=== PATIENT | male | born 1945 | race Caucasian/White ===

== ENCOUNTER 2021-11-26 10:33 | Day surgery (SDC) | payer MEDICARE ==
[~2021-11-26] VITALS: Ht 165.1 cm; Wt 84.8 kg
[~2021-11-26 10:33] MED LIST: ASPIRIN 81 LOW81 MG; CARVEDILOL3.125 MG PO; CLOPIDOGREL75 MG PO; DOCUSATE CAL240 MG PO; FAMOTIDINE20 M1 PO; FUROSEMIDE20 MG PO; ISOSORBIDE DINIT5 MG PO; LEVOTHYROXIN100 MC1 PO; LOSARTAN POTASS25 MG PO; MIRALAX17 GM; MULTI VIT PO; PRALUENT75 MG; PROTONIX40 M2 PO
[2021-11-26 13:30] VITALS: BP 161/81
== END 2021-11-26 13:20 | disposition home or self-care (01) ==
LOC: ENDO 10:33 → ORM 12:00 → ENDO 13:20
PROVIDERS: ATTEND Internal Medicine Gastroenterology
PROC: 0DB58ZX Excision of Esophagus, Via Natural or Artificial Opening Endoscopic, Diagnostic (ICD-10-PCS; principal; 2021-11-26)
PROC: 0DD58ZX Extraction of Esophagus, Via Natural or Artificial Opening Endoscopic, Diagnostic (ICD-10-PCS; 2021-11-26)
DX: K22.70 Barrett's esophagus without dysplasia (principal); K29.70 Gastritis, unspecified, without bleeding; K44.9 Diaphragmatic hernia without obstruction or gangrene; K21.9 Gastro-esophageal reflux disease without esophagitis; K57.10 Diverticulosis of small intestine without perforation or abscess without bleeding; I10 Essential (primary) hypertension; I25.10 Atherosclerotic heart disease of native coronary artery without angina pectoris; Z95.5 Presence of coronary angioplasty implant and graft; Z86.010 Personal history of colon polyps
CPT/HCPCS: J3490